=== PATIENT | female | born 1940 | race Caucasian/White ===

== ENCOUNTER 2019-05-07 18:18 | Inpatient (IN) ==
[2019-05-07 19:16] LABS: BASO# 0.01 X1000 (0.0-0.2); BASO% 0.1 % (0.0-0.8); EOS# 0.08 X1000 (0.0-0.7); EOS% 1.1 % (0.0-10.0); HEMATOCRIT 39.9 % (37.0-47.0); HEMOGLOBIN 13.1 g/dL (12.0-16.0); IMM GRAN# 0.09 X1000 (0.0-0.04); IMM GRAN% 1.2 % (0.0-0.5); LYMPH# 1.31 X1000 (1.2-3.4); LYMPH% 17.9 % (20.5-51.1); MCH 29.2 PG (27-31); MCHC 32.8 g/dL (33-37); MCV 89.1 FL (81-99); MONO# 1.28 X1000 (0.11-0.59); MONO% 17.5 % (1.7-9.3); MPV 8.6 FL (7.4-10.4); NEUT# 4.53 X1000 (1.4-6.5); NEUT% 62.2 % (42.2-75.2); PLT 368 X1000 (130-400); RBC 4.48 XMIL (4.2-5.4); RDW 13.2 % (11.5-14.5)
[2019-05-07 19:38] LABS: ALBUMIN 3.8 g/dL (3.5-5.0); CALCIUM 10.2 mg/dL (8.8-10.2); CREATININE 1.1 mg/dL (0.5-0.9); POTASSIUM 2.9 mmol/L (3.5-5.1); TOTAL BILIRUBIN 0.2 mg/dL (0.20-1.00)
[2019-05-07] MEDS ORDERED: NS 1,000 ML IV ONE (20:20)
[2019-05-07] MEDS ORDERED: POTASSIUM CHLORIDE 40 MEQ/SWI 40 MEQ/100 ML IVPB IV ONE (20:21)
--- NOTE | 2019-05-07 20:39 | PROVIDER DOCUMENTATION ---
This chart was entered by Caridad Ortiz Scribe, acting as scribe for Alex Devries CRNP. HPI-Abdominal Pain/GI Problem - General Chief Complaint: Diarrhea Stated Complaint: WEAK/DIRRAHEA Time Seen by Provider: 05/07/19 18:38 Source: patient, family Allergies/Adverse Reactions: Patient Allergies Allergy/AdvReac Type Severity Reaction Status Date / Time cephalexin monohydrate * Allergy SWELLING Verified 05/07/19 18:53 [From Keflex] nitrofurantoin Allergy Unknown Verified 05/07/19 18:53 [From Macrobid] nitrofurantoin Allergy ITCHING Verified 05/07/19 18:53 macrocrystalline * [From Macrodantin] pravastatin Allergy Unknown Verified 05/07/19 18:53 Sulfa (Sulfonamide Allergy Unknown Verified 05/07/19 18:53 Antibiotics) sulindac Allergy Unknown Verified 05/07/19 18:53 baclofen AdvReac NAUSEA Verified 05/07/19 18:53 Beta-Blockers AdvReac Unknown Verified 05/07/19 18:53 (Beta-Adrenergic Bloc codeine AdvReac Unknown Verified 05/07/19 18:53 Home Medications: Home Medication List Medication Instructions Recorded Confirmed Last Taken Type Clopidogrel Bisulfate [Plavix] 75 mg PO DAILY 05/13/14 05/07/19 04/25/18 History Potassium Chloride 10 meq PO DAILY 05/13/14 05/07/19 04/30/18 08:00 History Triamterene/Hctz [Maxzide 75/50] 1 tab PO DAILY 09/02/15 05/07/19 04/30/18 08:00 History Phenytoin Sodium Extended 200 mg PO 0900 04/27/18 05/07/19 04/30/18 09:00 History [Dilantin] Hydroxyzine [Atarax] 25 mg PO BID PRN 05/01/18 05/07/19 Unknown History Phenytoin Sodium Extended 100 mg PO 1500 05/01/18 05/07/19 04/30/18 15:00 History [Dilantin] Aspirin 325 mg PO DAILY tablet 05/04/18 05/07/19 Unknown Rx Gabapentin [Neurontin] 900 mg PO TID@0900,1500,2100 #90 05/04/18 05/07/19 Unknown Rx cap Hydrocodone/APAP 10 mg/325 mg 1 - 2 ea PO Q4H PRN PRN #40 tab 05/04/18 05/07/19 Unknown Rx [Lenore-10] - History of Present Illness-ABD Nature of Presenting Problems: pt is a 78 yr old female presenting with complaint of profuse diarrhea onset 03/25/19, pt has been seen in ER for dehydration, pt reports she had colonoscopy by Dr Davidson last week and dx as diverticulosis, was previously dx as diverti culitis and treated with flagyl and cipro, pt now on Questrin per Dr Davidson without relief. pt reports diarrhea with any ingestion of food or drink, severe weakness and now having to use walker to ambulate due to the weakness. pt denies any fever/chills, no vomiting. Abdominal Pain Onset Location: reports: generalized abdomen Pain Radiation: reports: no radiation Quality of Pain: reports: aching Severity in ED: reports: moderate Onset/Duration: reports: other (03/25/19) Timing: reports: still present Activities at Onset: reports: light activity Exposure to sick contacts?: No Modifying Factors: improves with: other medication (flagyl, cipro, qeustrin-no relief) Associated Symptoms: reports: diarrhea, fatigue, malaise, weakness, trouble walking Last BM: this evening Rectal Pain: reports: none Bruising or Bleeding Gums?: No Similar Symptoms Previously?: Yes Recently seen or treated by another doctor?: Yes Review of Systems - Adult - REVIEW OF SYSTEMS - ADULT Constitutional: reports: zoniaque. denies: fever Eyes: reports: no symptoms reported Ears, Nose, Mouth & Throat: reports: no symptoms reported Cardiovascular: reports: no symptoms reported Respiratory: reports: no symptoms reported Gastrointestinal: reports: abdominal pain, diarrhea. denies: constipation, nausea, vomiting Genitourinary: reports: no symptoms reported Musculoskeletal: reports: no symptoms reported Integumentary: reports: no symptoms reported Neurological: reports: no symptoms reported Psychiatric: reports: no symptoms reported Endocrine: reports: no symptoms reported Hematologic/Lymphatic: reports: no symptoms reported Allergic/Immunologic: reports: no symptoms reported All Other Systems: Reviewed and Negative Past History - Adult - PAST MEDICAL HISTORY-ADULT Review of Records: reports: Old Records Reviewed, Nursing Assessment Review, Medications Reviewed, Social history reviewed & non-contributory. Major Childhood Illnesses: reports: denies history Cardiovascular: reports: CAD (stent ), [place] (2006) Respiratory: reports: denies history Gastrointestinal: reports: denies history Obstetrical/Gynecological: reports: denies history Genitourinary: reports: denies history Musculoskeletal: reports: denies history Neurological: reports: Seizures/Epilepsy Psychiatric: reports: denies history Endocrine/Immune: reports: denies history Other Conditions: reports: denies history - PRIOR SURGERIES/PROCEDURES Surgical/Procedure History: reports: cardiac stent, hernia repair - IMMUNIZATION STATUS Childhood Immunizations: See Nurse Assessment Flu Vaccine: See Nurse Assessment - FAMILY HISTORY Family History: reviewed, not pertinent - SOCIAL HISTORY Smoking: denies Substance Use: denies Living Situation: family Physical Exam-General - PHYSICAL EXAM-ADULT Initial Vital Signs Reviewed: Yes - CONSTITUTIONAL General Appearance: alert, no apparent distress - EYES Eyes: PERRL/EOMI - HEAD, EARS, NOSE, MOUTH & THROAT HENMT: normocephalic/atraumatic. negative: moist mucous membranes (dry oral mucosa) - NECK Neck: non-tender, full range of motion, supple, normal inspection - RESPIRATORY Respiratory: chest non-tender, lungs clear, normal breath sounds - CARDIOVASCULAR Cardiovascular: normal peripheral pulses, regular rate, rhythm, no edema - GASTROINTESTINAL (ABDOMEN) Abdominal Exam: normal bowel sounds, soft, tenderness (mild general tenderness) - LYMPHATIC Lymphatic: no adenopathy - MUSCULOSKELETAL Back Exam: normal inspection Extremity: normal range of motion, non-tender, normal inspection - SKIN Integumentary: normal color, warm/dry. negative: normal turgor (tenting) - NEUROLOGIC Neurologic: grossly normal - PSYCHIATRIC Psych/Mental Status: normal mood/affect Progress - PLAN OF CARE/RESULTS Progress/Plan/Lab Results: Vital Signs - 8 hr 05/07/19 18:22 Temperature 97.5 F L Pulse Rate 95 H Respiratory Rate 18 Blood Pressure 131/91 O2 Sat by Pulse Oximetry 99 Orders Category Date Time Status FLAT/UPRIGHT ABD/1 VIEW CHEST [RAD] Stat Exams 05/07/19 18:50 Ordered C DIFF TOXIN PL Stat Lab 05/07/19 18:49 Uncollected CBC WITH ELECTRONIC DIFF [HEME] Stat Lab 05/07/19 18:49 Uncollected COMPREHENSIVE METABOLIC PANEL [CHEM] Stat Lab 05/07/19 18:49 Uncollected STOOL CULTURE [RM] Stat Lab 05/07/19 18:49 Uncollected UA NIMS W/REFLEX CULT PL [URINALYSIS] Stat Lab 05/07/19 18:50 Uncollected Result Diagrams: 05/07/19 19:02 05/07/19 19:02 - CONSULTS/PCP/HOSPITALIST Notification #1 *Consult/PCP/Hospitalist*: Dr Auguste Time Discussed: 20:03 Reason/Comments: dehydration Consult Disposition: other (transfer to Main for GI consult) Departure - Departure Date of Disposition Decision: 05/07/19 Time of Disposition Decision: 20:19 DIAGNOSIS: Dehydration, Hypokalemia Diarrhea Qualifiers: Diarrhea type: unspecified type Qualified Code(s): R19.7 - Diarrhea, unspecified Disposition: ADMITTED INPATIENT 09 Certified Medical Emergency: Emergent Condition: Stable Additional Freetext Instructions: ED Follow Up Instructions: You have been treated by a care provider in the Emergency Department. These instructions are being provided to you so you can have an understanding of how to care for yourself upon discharge. Upon discharge from the Emergency Departmen t, you are responsible for making arrangements for follow-up care by a physician of your choice. Take all prescribed medications as directed. Return to the Emergency Department immediately for any new or worsening symptoms. You may call the Physician Referral phone number at [phone] to obtain a list of Physicians who are taking new patients. Referrals and Follow-Ups: Evi Israel MD [Primary Care Provider] - - Critical Care Note This patient required my direct & personal management of CC.: No Attestation - Physician/ VALENTINA Attestation Patient care was provided by Advanced Practice Provider:: Yes Advanced Practice Provider:: Alex Devries Advanced Practice Provider documentation review:: The Mid-level provider documentation, treatment plan and medical decision making was reviewed by the physician who agrees with all treatment and medical decision making by the MLP. The physician spent face to face time with patient:: No Advanced Practice Provider documentation review:: Supervising physician onsite and consulted in the evaluation and care of this patient. The physician did not have a face to face encounter with the patient. This chart was documented by the indicated scribe, (Caridad Ortiz Scribe) and accurately reflects the services I performed and decisions made by , Alex Devries CRNP, as attested by the provider's signature.
--- NOTE | 2019-05-07 21:00 | Diag Imaging Result Doc PS360 ---
EXAM: FLAT/UPRIGHT ABD/1 VIEW CHEST INDICATION: abd pain TECHNIQUE: 3 views COMPARISON: Chest radiograph dated 05/04/2018 FINDINGS: There are nonspecific bowel gas and stool patterns. There is no obstructive bowel pattern. There is no evidence of large volume free abdominal gas. There is no evidence of organomegaly. There is a stable calcified granuloma in the right midlung zone. The lungs are grossly clear, otherwise. There is no discrete pleural fluid collection or pneumothorax. The cardiomediastinal silhouette and central vasculature are grossly unremarkable. IMPRESSION: Nonspecific abdomen. Electronically signed by Tommie Zhang 05/07/2019 8:58 PM
[2019-05-07] MEDS ORDERED: IMODIUM PO PRN (23:01)
[2019-05-07] MEDS ORDERED: IMODIUM PO ONE (23:01)
[2019-05-07 23:47] LABS: HEMOGLOBIN A1C 5.4 % (4.8-6.0)
[2019-05-08] MEDS ORDERED: ZOFRAN IV PRN (00:05)
[2019-05-08] MEDS ORDERED: NORCO-10 PO PRN (00:05)
--- NOTE | 2019-05-08 01:06 | HISTORY AND PHYSICAL ---
CHIEF COMPLAINT: Diarrhea and weakness. HISTORY OF PRESENT ILLNESS: Ms. Russell is a 78-year-old female who presented to [facility] tonight after having 2 months of diarrhea. She has seen Dr. Israel as well as Dr. Underwood with GI related to this. Had endoscopy and colonoscopy. She was originally given antibiotics by Dr. Israel, the diarrhea did not stop. She saw Dr. Underwood who did endoscopy. He found diverticulosis, no diverticulitis, and he did dilate her esophagus. She has continued to have diarrhea, and is now weak to the point that she is having difficulty ambulating so she came into the emergency room where she was found to have mild acute kidney injury as well as hypokalemia. She will be admitted to [facility] for GI consultation. PAST MEDICAL HISTORY: Hyperlipidemia, coronary artery disease, status post cardiac stenting, questionable congestive heart failure with an intact ejection fraction, GERD, hyperlipidemia. PREVIOUS SURGICAL HISTORY: Colonoscopy and endoscopy with dilation of her esophagus, 2 breast biopsies which were benign, hysterectomy, cataract surgery, coronary stenting, right total knee, and hernia repair. SOCIAL HISTORY: , lives with her . No alcohol, tobacco, or illicit drugs. FAMILY HISTORY: Both mother and father have coronary artery disease and myocardial infarction. Father had a nonspecific cancer. ALLERGIES: TO KEFLEX AND BETA BLOCKERS. SULFA, MACRODANTIN WHICH CAUSE ITCHING. CODEINE AND FLU VACCINATION. HOME MEDICATIONS: Plavix 75 mg p.o. daily, potassium chloride 10 mEq p.o. daily, Maxzide 75/50, 1 p.o. daily, Dilantin 200 mg p.o. at 9 a.m. and Dilantin 100 mg p.o. at 1500, hydroxyzine 25 mg p.o. b.i.d. p.r.n., Neurontin 900 mg p.o. t.i.d., Hepzibah 10, 1-2 q.4 p.r.n., aspirin 325 p.o. daily. REVIEW OF SYSTEMS: A 14 point review of systems conducted with the patient. Pertinent positives listed above in the HPI. All other systems reviewed and found to be negative. PHYSICAL EXAMINATION: VITAL SIGNS: Temperature 97.6, pulse 79, respirations 16, blood pressure 146/73, oxygen saturation 98% on room air. GENERAL: Pleasant 78-year-old female lying in the medical floor bed. Answers all questions appropriately. She is alert and oriented x3. HEENT: Head is atraumatic, normocephalic. Pupils are equal, round, react to light. Extraocular eye movements intact. Sclerae anicteric. Conjunctivae are pink. Oral mucosa is dry. NECK: Supple. No JVD. No thyromegaly. Trachea is midline. No cervical lymphadenopathy. CARDIAC: S1, S2 appreciated. No murmurs, gallops or rubs. LUNGS: Clear to auscultation bilaterally. No rhonchi, wheeze or rales. Symmetric rise and fall with respirations. ABDOMEN: Soft and nondistended, nontender. Bowel sounds present all 4 quadrants, hyperactive. Reducible hernia in the left lower quadrant. EXTREMITIES: No clubbing, cyanosis or edema. 2+ pedal pulses. GENITOURINARY: No bladder distention. Patient voids, otherwise deferred. NEUROLOGICAL: Alert and oriented x3. No focal motor deficits. Otherwise nonfocal examination. DIAGNOSTIC DATA: Abdominal x-ray shows a nonspecific bowel gas pattern. LABORATORY DATA: CBC within normal limits. Sodium 137, potassium 2.9, chloride 97, carbon dioxide 23, BUN 22, creatinine 1.1, glucose 176. C. diff toxin is negative. Stool sample is pending. ASSESSMENT AND PLAN: 1. Diarrhea. Patient has had diarrhea for the past 2 months. She tried Questran without any results. We are waiting on a stool sample. Stated that she could not tolerate the smell of the Questran. Since her C. diff is negative will start on Imodium. Will hold patient n.p.o. tonight for GI to consult tomorrow. 2. Acute kidney injury. Fluid hydration will be continued. It was started in the emergency room. Recheck laboratory data tomorrow. 3. Fluid and volume depletion. See above. 4. Hypokalemia. Replete and recheck. 5. Hypertension and hyperlipidemia. Continue home medications. 6. Further recommendations based on patient's clinical course. Dictated by SUSANNE Gagnon for Mallory Ayers MD cc: SUSANNE Gagnon MD Adnan A. Seljuki, MD Independent exam and assessment performed by me. Recommend ruling out malabsorption. Stool elastase, celiac disease work up recommended. Pt. could also have microscopic colitis. MTDD
[2019-05-08] MEDS: NEURONTIN PO SCH ×5 (02:00→22:03)
[2019-05-08] MEDS: ATARAX PO PRN ×2 (02:00→22:03)
[2019-05-08 06:52] LABS: AGAP 13; BUN 18 mg/dL (8-22); CALCIUM 9.8 mg/dL (8.8-10.2); CHLORIDE 104 mmol/L (98-107); COSMO 278; CREATININE 0.7 mg/dL (0.5-0.9); ESTIMATED GFR > 60; GLUCOSE 106 mg/dL (70-104); MAGNESIUM 1.2 mg/dL (1.5-2.7); POTASSIUM 3.3 mmol/L (3.5-5.1); SODIUM 138 mmol/L (136-145); TCO2 21 mmol/L (25-35)
[2019-05-08] MEDS: ASPIRIN PO SCH (10:14)
[2019-05-08] MEDS: DILANTIN PO SCH ×2 (10:16→14:46)
[2019-05-08] MEDS: PLAVIX PO SCH (10:17)
[2019-05-08] MEDS: KLOR-CON PO SCH (10:18)
[2019-05-08] MEDS ORDERED: KLOR-CON PO ONE (11:22)
--- NOTE | 2019-05-08 12:39 | PROGRESS NOTE ---
DATE: 05/08/2019 SUBJECTIVE: Patient reports still having diarrhea. She reports that she had it for the last 2 months. So far, she has had colonoscopy 1 to [address] Underwood's office. She tried Questran for this chronic diarrhea but did not help. OBJECTIVE: Vital Signs: Temperature 98.4 degrees, heart rate 71, respiratory rate 18, blood pressure 128/59 and O2 saturation 95% on room air. General: This a 78-year-old female lying in bed in no acute distress. Cardiovascular: S1, S2 heard. No murmurs, gallops, or rubs. Regular rate and rhythm. Respiratory: Clear bilaterally to auscultation. No work of breathing or using accessory muscles. Abdomen: Soft. Bowel sounds present. No organomegaly. Extremities: No clubbing, cyanosis, or edema. Peripheral pulses present in both legs. Neurological: Patient alert and oriented x3. Moves all 4 extremities. ASSESSMENT AND PLAN: 1. Chronic diarrhea. The patient has been followed by GI as an outpatient but unfortunately continues to have diarrhea. In any case, we are going to do stool studies and consult GI. 2. Acute kidney injury, resolved. We will continue with IV fluids. 3. Hypokalemia. We are going to correct it today. 4. Hypertension. Aware. 5. Hyperlipidemia. We will continue home medications. 6. Disposition: We will continue to monitor this patient closely and following leads from GI. cc: Derick Green MD MTDD
[2019-05-08 15:46] LABS: URINE SOURCE CLEAN CATCH
[2019-05-08 16:07] LABS: BILIRUBIN URINE NEGATIVE (NEGATIVE); BLOOD URINE MODERATE (NEGATIVE); COLOR YELLOW; GLUCOSE URINE NEGATIVE (NEGATIVE); KETONE URINE NEGATIVE (NEGATIVE); LEUKOCYTES URINE LARGE (NEGATIVE); NITRITE URINE NEGATIVE (NEGATIVE); PROTEIN URINE TRACE mg/dL (NEGATIVE); TURBIDITY URINE HAZY (CLEAR); UROBILINOGEN URINE NORMAL (NORMAL)
[2019-05-08 16:11] LABS: UR EPITHELIAL CELLS <10 /HPF (<10); URINE BACTERIA 4+ /HPF; URINE RBC <10 /HPF (<10); URINE WBC TNTC /HPF (<10)
--- NOTE | 2019-05-08 17:38 | GASTROENTEROLOGY CONSULTATION ---
DATE: 05/08/2019 REASON FOR CONSULTATION: Chronic diarrhea. HPI: Ms Brittani Russell is a 78-year-old woman with past medical history of hypertension, hyperlipidemia, coronary artery disease status post NV and stents, peripheral neuropathy, who presented on 05/07 with 2 months of progressive watery diarrhea. The patient reports having 3 to 4 episodes of diarrhea with associated generalized weakness and 20 pound weight loss over the last 2 months. She reports having similar episode 3 years ago in 2015. No abdominal pain, some nausea, no vomiting, rectal bleeding or melena. She denies any recent antibiotics or travel. She was started on Cymbalta about 3 to 4 months ago for peripheral neuropathy. No family history of GI malignancies. She underwent recent EGD and colonoscopy with Dr. Underwood on 04/23/2019 that showed a small hiatal hernia and widely patent esophageal stricture. She was dilated with a 54- Romansh Farr dilator. Biopsies of stomach were taken which were negative for H. pylori. On colonoscopy, there was diverticulosis. REVIEW OF SYSTEMS: As per HPI, otherwise 12 point review of systems and past medical history as per HPI. PAST SURGICAL HISTORY: She had a left inguinal hernia repair, hysterectomy. FAMILY HISTORY: No family history of GI malignancies. SOCIAL HISTORY: No smoking, alcohol or drug use. MEDICATIONS: Include Cymbalta, gabapentin, Plavix, potassium, Maxzide, Dilantin, hydroxyzine, Neurontin, Sieper, aspirin 325 . ALLERGIES: To cephalexin, nitrofurantoin, pravastatin, codeine, flu vaccine, beta blockers, sulfa. PHYSICAL EXAMINATION: Vital Signs: Temperature is 97.3 degrees, heart rate 84, respiratory rate 18, blood pressure 102/57, O2 saturation 96% on room air. General: Patient is awake, alert, oriented in no acute distress. HEENT: Sclerae anicteric. Moist mucous membranes. Extraocular motor intact. Neck: Supple. No JVD or lymphadenopathy. Cardiac: Regular rate and rhythm. No murmurs, rubs, or gallops. Lungs: Clear to auscultation bilaterally, no wheezing. Abdomen: Soft, nontender, nondistended. Normoactive bowel sounds. No rebound or guarding. Extremities: No clubbing, cyanosis or edema. Neuro: Was nonfocal. Moving all extremities symmetrically. LABS: White count of 7.3, hemoglobin of 13.1, platelets of 368,000. Sodium 138, potassium 3.3 from 2.9 yesterday, chloride of 104, bicarb 21, anion gap of 13, BUN 18, creatinine 0.7 from 1.1 yesterday, glucose of 106, A1c of 5.4. LFTs are normal. TSH 3.21. UA shows moderate blood, large leukocytes, numerous white blood cells. C difficile stool toxin is negative, phenytoin level of 2.8. IMAGING: Abdominal x-ray shows nonspecific abdomen. CT of the abdomen and pelvis with IV contrast only on 03/07/2018 showed mild static steatosis and left inguinal fat containing hernia. EGD and colonoscopy on 04/23 as described above, fecal leukocytes are few, ova and parasite none, fecal elastase is pending. ASSESSMENT AND PLAN: Ms. Brittani Russell 78-year-old woman who presents with 2 month of chronic diarrhea. Differential include microscopic colitis, fecal pancreatic insufficiency, celiac disease, infectious diarrhea; unlikely ischemic colitis, inflammatory bowel disease. Will wait for return of stool studies including fecal elastase versus diagnostic EGD, colonoscopy small bowel and random colon biopsies on . Please replete her potassium for hypokalemia. She is is tolerating full liquid diet, transition to clear liquids tomorrow. Imodium as needed for diarrhea. Thank you for this consult. Will follow with you. Please call with any questions, concerns. ANTONIETTA
[2019-05-09 06:08] LABS: BASO# 0.02 X1000 (0.0-0.2); BASO% 0.3 % (0.0-0.8); EOS# 0.22 X1000 (0.0-0.7); EOS% 2.9 % (0.0-10.0); HEMATOCRIT 34.4 % (37.0-47.0); HEMOGLOBIN 11.3 g/dL (12.0-16.0); IMM GRAN# 0.11 X1000 (0.0-0.04); IMM GRAN% 1.5 % (0.0-0.5); LYMPH# 1.67 X1000 (1.2-3.4); MCH 29.7 PG (27-31); MCHC 32.8 g/dL (33-37); MCV 90.3 FL (81-99); MONO# 1.36 X1000 (0.11-0.59); MONO% 17.9 % (1.7-9.3); MPV 8.6 FL (7.4-10.4); NEUT% 55.4 % (42.2-75.2); PLT 288 X1000 (130-400); RBC 3.81 XMIL (4.2-5.4); RDW 13.3 % (11.5-14.5); WBC 7.58 X1000 (4.8-10.8)
[2019-05-09 06:54] LABS: AGAP 10; BUN 13 mg/dL (8-22); CALCIUM 9.6 mg/dL (8.8-10.2); CHLORIDE 106 mmol/L (98-107); COSMO 278; CREATININE 0.7 mg/dL (0.5-0.9); ESTIMATED GFR > 60; GLUCOSE 96 mg/dL (70-104); POTASSIUM 3.2 mmol/L (3.5-5.1); SODIUM 139 mmol/L (136-145); TCO2 23 mmol/L (25-35)
[2019-05-09] MEDS: DILANTIN PO SCH ×2 (09:25→15:43)
[2019-05-09] MEDS: KLOR-CON PO SCH (09:26)
[2019-05-09] MEDS: VANCOCIN PO SCH ×3 (09:26→23:22)
[2019-05-09] MEDS: NEURONTIN PO SCH ×3 (09:26→23:22)
[2019-05-09] MEDS: ASPIRIN PO SCH (09:29)
[2019-05-09] MEDS ORDERED: POTASSIUM CHLORIDE 60 MEQ in NS 500 ML IV ONE (12:04)
[2019-05-09] MEDS: PLAVIX PO SCH (12:50)
--- NOTE | 2019-05-09 13:00 | PROGRESS NOTE ---
DATE: 05/08/2019 SUBJECTIVE: Patient continues to have diarrhea. Denies any abdominal pain at all. Evaluated by GI, and there is positive C. Diff antigen noted so he has been placed on vancomycin p.o. OBJECTIVE: Vital Signs: Temperature 98 degrees, heart rate 88, respiratory rate 18, and blood pressure 124/68. O2 saturation 97% on room air. General: This is a 78-year-old female lying in bed in no acute distress. Cardiovascular: S1, S2 heard. No murmurs, gallops, or rubs. Regular rate and rhythm. Respiratory: Clear bilaterally to auscultation. No work of breathing or using accessory muscles. Abdomen: Soft. Nontender to palpation. Bowel sounds present. No organomegaly. Extremities: No clubbing, cyanosis, or edema. Peripheral pulses present in both legs. Neurological: Patient alert and oriented x3. Moves all 4 extremities. ASSESSMENT AND PLAN: 1. Clostridium difficile colitis. Apparently, the patient had C. Diff antigen positive but considering his history of diarrhea for 2 weeks gastroenterology has decided to start vancomycin on this patient. We will add Dificid to her current treatment considering that she has had diarrhea for a couple of months. We will continue to monitor BMP daily. 2. Acute kidney injury resolved. 3. Hypokalemia resolved. 4. Hypertension. Blood pressure is under control. We will continue with the same management. 5. Hyperlipidemia. We will continue home medications. 6. Disposition. At this point, we will continue to monitor this patient closely. cc: Derick Green MD
--- NOTE | 2019-05-09 16:33 | PROVIDER PROGRESS NOTE ---
Progress Note S: No acute overnight events. Afebrile. No N/V/F. Tolerating full liquids. No abdominal pain. +diarrhea. O: Last Vital Signs Temp 98.0 F 05/09/19 07:29 Pulse 88 05/09/19 07:29 Resp 18 05/09/19 07:29 BP 124/68 05/09/19 07:29 Pulse Ox 93 L 05/09/19 08:28 Height 5 ft 5 in Weight 151 lb 8 oz GEN: awake, alert, NAD HEENT: anicteric, MMM NECK: supple, no JVD PULM: CTAB, no wheezing ABD: soft NT/ND, NABS EXT: no cce NEURO: nonfocal LABS: 05/09/19 05/09/19 05:51 05:51 WBC 7.58 Hgb 11.3 L Plt Count 288 Sodium 139 Potassium 3.2 L Chloride 106 Carbon Dioxide 23 L BUN 13 Creatinine 0.7 Cdiff positive Ag A/P Ms. Brittani Russell 78-year-old woman who presents with 2 month of chronic diarrhea found to have C diff. She had negative EGD and colonoscopy last week. Started on vancomycin this AM. Also primary started Dificid. This is her first occurrence of CDI and has not been treated in with vancomycin previously. Recommend monotherapy with vancomycin or Dificid. This is her first day of treatment. # CDI: non-severe; consider narrrowing abx to vancomycin 125mg PO QID or Dificid 200mg BID and continue for 10 days; advance diet to dairy free regular # Anemia: stable; no overt bleeding # Hypokalemia: 2/2 to GI losses; replete prn Will follow with you. Please call with questions.
[2019-05-09] MEDS: DIFICID PO SCH (23:22)
[2019-05-10] MEDS: VANCOCIN PO SCH ×4 (02:30→20:11)
[2019-05-10 07:16] LABS: BASO# 0.02 X1000 (0.0-0.2); BASO% 0.3 % (0.0-0.8); EOS# 0.19 X1000 (0.0-0.7); EOS% 3.1 % (0.0-10.0); HEMATOCRIT 32.5 % (37.0-47.0); HEMOGLOBIN 10.7 g/dL (12.0-16.0); IMM GRAN# 0.09 X1000 (0.0-0.04); IMM GRAN% 1.5 % (0.0-0.5); LYMPH% 28.1 % (20.5-51.1); MCH 30.1 PG (27-31); MCHC 32.9 g/dL (33-37); MCV 91.5 FL (81-99); MONO# 1.24 X1000 (0.11-0.59); MONO% 20.5 % (1.7-9.3); MPV 8.9 FL (7.4-10.4); NEUT% 46.5 % (42.2-75.2); PLT 251 X1000 (130-400); RBC 3.55 XMIL (4.2-5.4); RDW 13.3 % (11.5-14.5); WBC 6.04 X1000 (4.8-10.8)
[2019-05-10 07:43] LABS: AGAP 11; BUN 13 mg/dL (8-22); CALCIUM 8.6 mg/dL (8.8-10.2); CHLORIDE 107 mmol/L (98-107); COSMO 278; CREATININE 0.7 mg/dL (0.5-0.9); ESTIMATED GFR > 60; GLUCOSE 97 mg/dL (70-104); POTASSIUM 4.2 mmol/L (3.5-5.1); SODIUM 139 mmol/L (136-145); TCO2 21 mmol/L (25-35)
[2019-05-10 08:43] LABS: BANDS 2 % (0-1); LYMPHS 18 % (21-51); MONO 22 % (1-9); SEGS 58 % (42-75)
[2019-05-10] MEDS: ASPIRIN PO SCH (10:24)
[2019-05-10] MEDS: PLAVIX PO SCH (10:24)
[2019-05-10] MEDS: KLOR-CON PO SCH (10:25)
[2019-05-10] MEDS: DILANTIN PO SCH ×2 (10:25→16:47)
[2019-05-10] MEDS: DIFICID PO SCH (10:25)
[2019-05-10] MEDS: NEURONTIN PO SCH ×3 (10:26→21:12)
[2019-05-10] MEDS: MAXZIDE 75/50 PO SCH (10:26)
[2019-05-10] MEDS: CULTURELLE PO SCH ×2 (16:47→21:12)
[2019-05-10] MEDS: TYLENOL PO PRN (16:52)
--- NOTE | 2019-05-10 18:40 | PROGRESS NOTE ---
DATE: 05/10/2019 SUBJECTIVE: Patient continues to have diarrhea. She has been started on vancomycin and also Dificid yesterday, but she reports having the same amount of diarrhea, and actually she is feeling still very weak and sometimes with some numbness in both upper extremities. OBJECTIVE: Vital Signs: Temperature 97.9 degrees, heart rate 75 respiratory rate 19, blood pressure 125/56, O2 saturation 94% on room air. General: This is a 78-year-old, female, lying in bed, in no acute distress. Cardiovascular: S1, S2 heard. No murmurs, gallops, or rubs. Regular rate and rhythm. Respiratory: Clear bilaterally to auscultation. No work of breathing or using accessory muscles. Abdomen: Soft, nontender to palpation. Bowel sounds present, hyperactive. No organomegaly noted. Extremities: No clubbing, cyanosis, or edema. Peripheral pulses present in both legs. Neurological: Patient is alert and oriented x3. Moves all 4 extremities. LABORATORY DATA: White cell count 6.04, hemoglobin 10.7, hematocrit 32.5, platelets 251,000. Within normal BMP, except calcium 8.6. ASSESSMENT AND PLAN: 1. Clostridium difficile colitis. She has had a CT antigen positive, and considering her history of diarrhea and weakness for 2 months, Gastroenterology has decided to place on vancomycin. We added Dificid to her current treatment, but they recommend monotherapy, so we are discontinuing Dificid. Unfortunately, diarrhea continues to happen. As we mentioned before, this has been going on for a couple of months. She is feeling still very weak despite having corrected her electrolytes. At this point, I will put a consult for Physical Therapy to make sure that she does not become very weak and we will go from there. 2. Acute kidney injury. The condition is completely resolved. 3. Hypokalemia. Resolved. 4. Hypertension. Blood pressure is between 110's and 120's. We will continue with same management. 5. Hyperlipidemia. We will continue home medications. 6. Disposition. At this point, the patient continues to have diarrhea. She has received so far 2 days of vancomycin. She received 1 day of Dificid, but we are stopping that medication because of GI's recommendations. We will see how this patient does. She is still feeling weak and kind of sometimes dizzy. We will monitor this patient closely as well as vitals every 6 hours. cc: Derick Green MD
--- NOTE | 2019-05-10 19:54 | GASTROENTEROLOGY PROGRESS NOTE ---
DATE: 05/10/2019 SUBJECTIVE: The patient is resting in bed. She is continuing to have diarrhea. She had 1 loose stool today. She had bowel incontinence today. She denies any blood in the stools. Denies any nausea or vomiting. She denies any abdominal pain. OBJECTIVE: Vital signs: Temperature is 97.9 degrees, pulse rate of 75, respiratory rate of 19, blood pressure 125/56, saturating 96% on room air. Body weight of 151 pounds 8 ounces. BMI 25.2 kg/m2. Generally, the patient is moderately nourished, Sitting in bed in no acute distress. HEENT: Mild pallor. No icterus. Pupils equal, reactive to light. Neck is supple. Abdomen is soft, nontender, nondistended. No guarding or rebound. Extremities: No cyanosis or clubbing. Neurologic-adams, she is alert, awake, oriented x3. LABORATORY DATA: Hemoglobin and hematocrit are 10.7 and 32.5, white count of 6.04, platelet count of 251,000. Sodium 139, potassium 4.2, chloride of 107, bicarbonate of 21, anion gap 11, BUN of 13, creatinine 0.7, glucose of 97, calcium 8.6. Urinalysis showing trace protein, moderate blood and large leukocytes. Stool C. difficile antigen was positive. Stool for white cells are many. Stool ova and parasites are none. Trichrome stain is pending. Stool culture: No enteric pathogens. Urine culture: No growth. DIAGNOSTIC DATA: Abdominal x-ray done on 05/07/2019 showed nonspecific abdomen. IMPRESSION AND PLAN: 1. Clostridium difficile infection. She was started on Dificid currently on p.o. b.i.d. She will need for 10 days. We will start her on Culturelle 1 capsule p.o. b.i.d. for 6 weeks. 2. Anemia. Continue to watch for now. She is on aspirin and Plavix. We will start her on gastrointestinal prophylaxis with Zantac twice a day for possible prophylaxis of stress gastritis. 3. Electrolyte imbalance. Continue to replenish per the primary team. 4. Acute kidney injury, resolved. 5. Hypertension, being managed by the primary team. 6. Hyperlipidemia, being managed by the primary team. 7. History of coronary disease, status post myocardial infarction and stents. She is on aspirin and Plavix. The risk of gastrointestinal bleeding and internal bleeding is higher. 8. Last esophagogastroduodenoscopy and colonoscopy done by Dr. Underwood on 04/23/2019, which showed small hiatal hernia and widely patent esophageal stricture. She was dilated with 54- [place] Farr dilator. Biopsies also were negative for Helicobacter pylori. On colonoscopy there was diverticulosis. The above plan was discussed with the patient and all questions were answered. Please call us with any further questions. cc: MD Derick Randhawa MD Zz Unknown
[2019-05-10] MEDS: ZANTAC PO SCH (21:12)
[2019-05-11] MEDS: VANCOCIN PO SCH ×4 (02:11→20:38)
[2019-05-11 06:56] LABS: BASO# 0.02 X1000 (0.0-0.2); BASO% 0.3 % (0.0-0.8); EOS% 2.9 % (0.0-10.0); HEMATOCRIT 34.2 % (37.0-47.0); HEMOGLOBIN 11.3 g/dL (12.0-16.0); IMM GRAN% 1.4 % (0.0-0.5); LYMPH# 1.35 X1000 (1.2-3.4); LYMPH% 19.3 % (20.5-51.1); MCH 30.1 PG (27-31); MONO# 1.28 X1000 (0.11-0.59); MONO% 18.3 % (1.7-9.3); MPV 8.8 FL (7.4-10.4); NEUT# 4.05 X1000 (1.4-6.5); NEUT% 57.8 % (42.2-75.2); PLT 264 X1000 (130-400); RBC 3.76 XMIL (4.2-5.4); RDW 13.6 % (11.5-14.5)
[2019-05-11 07:14] LABS: AGAP 11; BUN 13 mg/dL (8-22); CALCIUM 9.6 mg/dL (8.8-10.2); CHLORIDE 103 mmol/L (98-107); COSMO 275; CREATININE 0.7 mg/dL (0.5-0.9); ESTIMATED GFR > 60; GLUCOSE 110 mg/dL (70-104); POTASSIUM 3.9 mmol/L (3.5-5.1); SODIUM 137 mmol/L (136-145); TCO2 23 mmol/L (25-35)
[2019-05-11] MEDS: TYLENOL PO PRN (08:47)
[2019-05-11] MEDS: KLOR-CON PO SCH (08:48)
[2019-05-11] MEDS: MAXZIDE 75/50 PO SCH (08:48)
[2019-05-11] MEDS: ZANTAC PO SCH ×2 (08:48→20:00)
[2019-05-11] MEDS: DILANTIN PO SCH ×2 (08:49→14:00)
[2019-05-11] MEDS: CULTURELLE PO SCH ×2 (08:49→20:39)
[2019-05-11] MEDS: ASPIRIN PO SCH (08:49)
[2019-05-11] MEDS: NEURONTIN PO SCH ×3 (08:49→20:39)
[2019-05-11] MEDS: PLAVIX PO SCH (08:50)
[2019-05-11] MEDS: CYMBALTA PO SCH (10:50)
--- NOTE | 2019-05-11 14:55 | PROGRESS NOTE ---
DATE: 05/11/2019 SUBJECTIVE: The patient reports that she has less episodes of diarrhea. She has had one so far today. OBJECTIVE: Vital Sign: Temperature 99.2 degrees, heart rate 80, respiratory rate 19, blood pressure 137/60, O2 saturation 94% on room air. General: This is a 78-year-old female lying in bed, in no acute distress. Cardiovascular: S1, S2 heard. No murmurs, gallops, or rubs. Regular rate and rhythm. Respiratory: Clear bilaterally to auscultation. No work of breathing or using accessory muscles. Abdomen: Soft. Nontender to palpation. Bowel sounds present, hyperactive, but no organomegaly noted. Extremities: No clubbing, cyanosis, or edema. Peripheral pulses present in both legs. Neurological: Patient alert, oriented x3. Moves 4 extremities. LABORATORY DATA: White cell count 7.0, hemoglobin 9.3, hematocrit 34.2, platelets 264,000. Normal BMP. ASSESSMENT AND PLAN: 1. Clostridium difficile colitis. The patient has been placed on vancomycin. Today is day #2 of treatment. According to the patient, there is less bowel movements. Today, she has had so far one but she feels really weak so she requests to be in the hospital at least 1 to 2 more days. I think it is reasonable because she is working also with physical therapy, because she is feeling very weak. 2. Acute kidney injury, resolved. 3. Hypokalemia resolved. 4. Hypertension. Blood pressure is now under control. We will continue to monitor. 5. Hyperlipidemia. We will continue home medications. 6. Disposition. The patient is today feeling much better in terms of there is definitely less bowel movements today. She is really concerned that if she goes home earlier she will not be able to take care of her who also is very sick as well. We will keep this patient most likely over the weekend and we will let her go home on Tuesday. cc: Derick Green MD
--- NOTE | 2019-05-11 23:42 | PROVIDER PROGRESS NOTE ---
Progress Note S: No acute overnight events. She reports having 2-3 loose bowel movements. No abdominal pain, N/V, F, CP, SOB O: Last Vital Signs Temp 98.3 F 05/11/19 19:50 Pulse 71 05/11/19 19:50 Resp 14 05/11/19 19:50 BP 128/59 05/11/19 19:50 Pulse Ox 97 05/11/19 19:50 Height 5 ft 5 in Weight 151 lb 8 oz GEN: awake, alert, NAD HEENT: anicteric, MMM NECK: supple, no JVD PULM: CTAB, no wheezing ABD: soft NT/ND, NABS EXT: no cce NEURO: nonfocal LABS: 05/11/19 05/11/19 06:08 06:08 WBC 7.00 Hgb 11.3 L Plt Count 264 Sodium 137 Potassium 3.9 Chloride 103 Carbon Dioxide 23 L BUN 13 Creatinine 0.7 Glucose 110 H A/P MsAsad Russell 78-year-old woman who presents cdiff infection. Labs notable for anemia. No overt bleeding. Diarrhea improving. Tolerating PO. # CDI: non-severe; continue vancomycin 125mg PO QID for total10 days; tolerating PO; on probiotic # Anemia: stable; no overt bleeding # Hypokalemia: 2/2 to GI losses; resolved Will sign off. Please call with questions. Follow-up in GI clinic in 2-4 weeks
[2019-05-12] MEDS: VANCOCIN PO SCH ×4 (02:38→19:50)
[2019-05-12 07:45] LABS: BASO# 0.01 X1000 (0.0-0.2); BASO% 0.1 % (0.0-0.8); EOS% 2.8 % (0.0-10.0); HEMATOCRIT 34.3 % (37.0-47.0); HEMOGLOBIN 11.5 g/dL (12.0-16.0); IMM GRAN% 1.4 % (0.0-0.5); LYMPH# 1.31 X1000 (1.2-3.4); LYMPH% 18.6 % (20.5-51.1); MCH 30.3 PG (27-31); MCHC 33.5 g/dL (33-37); MCV 90.3 FL (81-99); MONO# 1.27 X1000 (0.11-0.59); MONO% 18.1 % (1.7-9.3); MPV 9.1 FL (7.4-10.4); NEUT# 4.14 X1000 (1.4-6.5); PLT 262 X1000 (130-400); RDW 13.2 % (11.5-14.5); WBC 7.03 X1000 (4.8-10.8)
[2019-05-12] MEDS: ASPIRIN PO SCH (08:18)
[2019-05-12] MEDS: CYMBALTA PO SCH (08:18)
[2019-05-12] MEDS: ZANTAC PO SCH ×3 (08:18→21:53)
[2019-05-12] MEDS: KLOR-CON PO SCH (08:18)
[2019-05-12] MEDS: NEURONTIN PO SCH ×4 (08:18→21:53)
[2019-05-12] MEDS: CULTURELLE PO SCH ×3 (08:18→21:52)
[2019-05-12] MEDS: PLAVIX PO SCH (08:18)
[2019-05-12] MEDS: MAXZIDE 75/50 PO SCH (08:18)
[2019-05-12] MEDS: DILANTIN PO SCH ×2 (08:18→15:50)
[2019-05-12] MEDS: TYLENOL PO PRN ×3 (08:52→19:54)
--- NOTE | 2019-05-12 19:07 | PROGRESS NOTE ---
DATE: 05/12/2019 INTERVAL HISTORY: The patient was able to walk using a walker in the hallway without too much of trouble. She is still feeling weak. I discussed with her about pathogenesis and natural history of C. difficile infection and I answered all of her questions. She wants to stay inside the hospital because of profound weakness and need for physical assistance while ambulating. I discussed with her that I will monitor her overnight. Depending on that, my plan would be to likely discharge her home tomorrow, but if she is too weak then she may need to go to rehab in future. OBJECTIVE: Currently temperature 98.1 degrees, pulse 71, respiratory rate 18, blood pressure 114/56, saturating 96% room air.General: Does not appear in any acute distress. Oral cavity is moist. Air entry bilaterally equal. No wheeze, rhonchi or crackles. S1, S2 normal. No murmur, rub or gallop. Abdomen is soft, nontender. Mild bilateral lower extremity edema. She is alert and oriented x3. LABORATORY DATA: Suggestive of no leukocytosis, normocytic anemia, normal platelet count. Clostridium difficile toxin was positive. ASSESSMENT AND PLAN: 1. Acute Clostridium difficile colitis. Continue oral vancomycin for 10 days. I discussed with her about the fact that it may take several days up to a week for her Clostridium difficile to get better. Continue physical therapy. 2. Her acute kidney injury and hypokalemia on presentation have resolved. Follow up BMP tomorrow. 3. Essential hypertension, currently well controlled without any medications. 4. History of coronary artery disease, status post stent in 2003. Continue home aspirin, clopidogrel. 5. History of chronic pain. Continue duloxetine and gabapentin. 6. Others: Continue home phenytoin. 7. Disposition: I will monitor the patient inside the hospital today, considering her profound weakness on physical exertion, and accordingly we will consider discharging home versus rehab in future. Plan of care discussed with her. Her questions have been answered. cc: Pj Bolden MD
[2019-05-12] MEDS: ATARAX PO PRN (19:54)
[2019-05-13] MEDS: VANCOCIN PO SCH ×3 (02:03→14:44)
[2019-05-13] MEDS: TYLENOL PO PRN (02:04)
[2019-05-13 07:59] LABS: AGAP 14; CHLORIDE 103 mmol/L (98-107); GLUCOSE 104 mg/dL (70-104); POTASSIUM 3.8 mmol/L (3.5-5.1); SODIUM 141 mmol/L (136-145); TCO2 24 mmol/L (25-35)
[2019-05-13 08:00] LABS: BUN 13 mg/dL (8-22); CALCIUM 9.5 mg/dL (8.8-10.2); COSMO 282; CREATININE 0.8 mg/dL (0.5-0.9); ESTIMATED GFR > 60; MAGNESIUM 1.2 mg/dL (1.5-2.7)
[2019-05-13] MEDS ORDERED: MAGNESIUM SULFATE 2 GM/S.W.I. 2 GM/50 ML IVPB IV ONE (08:05)
[2019-05-13] MEDS ORDERED: MAG-OX PO SCH (09:00)
[2019-05-13] MEDS: DILANTIN PO SCH ×2 (11:05→14:44)
[2019-05-13] MEDS: NEURONTIN PO SCH ×2 (11:06→14:44)
[2019-05-13] MEDS: CYMBALTA PO SCH (11:06)
[2019-05-13] MEDS: ASPIRIN PO SCH (11:06)
[2019-05-13] MEDS: KLOR-CON PO SCH (11:06)
[2019-05-13] MEDS: ZANTAC PO SCH (11:07)
[2019-05-13] MEDS: MAXZIDE 75/50 PO SCH (11:07)
[2019-05-13] MEDS: CULTURELLE PO SCH (11:07)
[2019-05-13] MEDS: PLAVIX PO SCH (11:07)
[2019-05-13 11:42] VITALS: BP 125/61
--- NOTE | 2019-05-13 16:10 | DISCHARGE SUMMARY ---
ADMISSION DATE: 05/07/2019 DISCHARGE DATE: 05/13/2019 DISCHARGE DISPOSITION: Home with home physical therapy. [employer] is working on setting it up over the weekend. DISCHARGE CONDITION: Hemodynamically stable. The patient is eating her full meals. She has about 1 to 2 loose bowel movements, but it has more fecal material than before. She denies any nausea, vomiting, abdominal pain. DISCHARGE DIAGNOSES: 1. Acute Clostridium difficile associated diarrhea. 2. Acute kidney injury. 3. Hypokalemia. 4. Hypomagnesemia. OTHER DIAGNOSES: 1. History of coronary artery disease status post stent in 2003. 2. History of chronic pain and peripheral neuropathy. 3. History of seizure disorder. 4. Essential hypertension. DISCHARGE MEDICATIONS: BMP and magnesium lab slips have been provided to be done within 5 days after discharge. 1. Hydroxyzine 25 mg b.i.d. as needed for itching. 2. Phenytoin sodium extended 200 mg in the morning time, 100 mg at afternoon time. 3. Duloxetine 60 mg daily. 4. Gabapentin 600 mg t.i.d. 5. Triamterene hydrochlorothiazide 75/50 one tab daily. 6. Clopidogrel 75 mg daily. 7. Potassium chloride 10 mEq daily. 8. Vancomycin 125 mg every 6 hours; 32 capsules have been provided. 9. Aspirin 325 mg daily. 10. Lactobacillus 1 tablet b.i.d. for 30 days. 11. Magnesium oxide 400 mg b.i.d.; 15 tablets have been provided. 12. Hydrocodone/APAP 10/325 mg tablet 1 tablet every 4 hours as needed for pain. VITALS: At the time of discharge, temperature 98.9 degrees, pulse 70, respiratory 20, blood pressure 117/59, saturating 94% room air. PHYSICAL EXAMINATION: General: Does not appear in any acute distress. Oral cavity: Moist. Lungs: Air entry bilaterally equal. No wheeze, rhonchi, crackles. Heart: S1, S2 normal. No murmur or gallop. Abdomen: Soft, nontender. Active bowel sounds. Extremities: No lower extremity edema. Neurologic: She is alert oriented x3. She is able to come out of bed, walk in the hallway using a walker. SIGNIFICANT LABS: At hospital admission and discharge: WBC was 7.5, hemoglobin 11.5, platelets 262,000. She did have potassium 3.2 on admission which has increased to 3.6. She did have magnesium of 1.2 at the time of discharge. She is getting 2 g of IV magnesium as well as oral magnesium prescription. Her creatinine was 1.1 on admission suggestive of acute kidney injury, which had decreased to 0.7 at the time of discharge. SIGNIFICANT MICROBIOLOGY: During hospital admission: Her C difficile antigen was positive. Toxin was negative. Stool has multiple WBCs. Her stool culture did not have any growth. Ova and parasite examination was negative. SIGNIFICANT IMAGING: During hospital admission: Abdominal x-ray on admission did not have any acute pathology. HOSPITAL COURSE SUMMARY: Ms. Russell is a 78-year-old lady with past medical history of coronary artery disease who had initially presented to [facility] emergency room after 2 months of diarrhea. She was worked up outpatient by [employer] where she underwent EGD and colonoscopy in April 2019. The EGD had esophageal stricture which was dilated, and colonoscopy had diverticulosis without any particular pathology. However, her diarrhea did not stop, so she decided to come to the emergency room to the [facility] from where she was transferred to [facility] for GI evaluation. The patient's stool evaluation suggested positive C difficile antigen, though the toxin was negative. Her stool had multiple WBCs. However, considering her symptoms, it was decided to treat it as C difficile associated diarrhea. Noticeably, patient did not receive any antibiotic in recent past, though she had admitted that her outpatient provider had prescribed her Flagyl for her diarrhea a few weeks ago. She was also found to have acute kidney injury, electrolyte deficiency. She was treated with intravenous fluids, oral vancomycin, and electrolyte supplements, following which clinically she improved. She was able to tolerate her diet, and her stool frequency had decreased and consistency was getting better. It was decided to discharge her on oral vancomycin as well as probiotics, to have outpatient GI and regular doctor follow-up. More than 30 minutes were spent in discharging this patient. All of her questions were answered. cc: Pj Bolden MD
== END 2019-05-13 15:44 | disposition home health service (06) | DRG 372 ==
LOC: P.ED 18:18 → 3N 21:33 → SUATTDRO 21:33 → 3N 22:43
PROVIDERS: ATTEND Internal Medicine